=== PATIENT | female | born 1955 | race Caucasian/White ===

== ENCOUNTER → 2016-10-15 | Outpatient (CLI) | payer OTHER, MEDICAID ==
[~2016-10-15] MED LIST: IOPAMIDOL (ISOVUE-300) 100 ML BTL IV ONE
== END ==
LOC: FIMAGING 13:17
PROVIDERS: ATTEND Physician Assistant
DX: R91.1 Solitary pulmonary nodule (principal); N20.0 Calculus of kidney; I25.10 Atherosclerotic heart disease of native coronary artery without angina pectoris
CPT/HCPCS: 74177; Q9967

== ENCOUNTER → 2016-10-24 | Outpatient (CLI) | payer OTHER, MEDICAID | LOC: FIMAGING 14:00 | DX: Z12.31 Encounter for screening mammogram for malignant neoplasm of breast (principal) | CPT/HCPCS: G0202 ==

== ENCOUNTER 2016-12-03 09:10 | Day surgery (SDC) | payer OTHER, MEDICAID ==
[2016-12-03] MEDS ORDERED: LIDOCAINE 1% 5 ML SDV ID PRN (10:22)
[2016-12-03] MEDS ORDERED: LR 1,000 ML IV ONE (10:22)
[2016-12-03] MEDS ORDERED: PROPOFOL/EMULSION 500 MG/50 ML BOTTLE IV ONE (11:22)
--- NOTE | 2016-12-03 12:10 | GPN ---
[f rep st] PROCEDURE NOTE DATE OF PROCEDURE: 12/03/2016 PREPROCEDURE DIAGNOSIS: Diarrhea, rectal bleeding and cramping abdominal pain. POSTPROCEDURE DIAGNOSIS: Diarrhea, rectal bleeding and cramping abdominal pain. Normal colonoscopy . PROCEDURE: Colonoscopy with biopsies. MEDICATIONS: Monitored anesthesia care. INDICATIONS: The patient is a 61-year-old female with a history of crampy abdominal pain and change in bowel habits along with diarrhea and hematochezia. She is here for a colonoscopy for further ev aluation. The risks and benefits of the procedure were discussed with the patient. Consent was obt ained. Risks include, but not limited to, bleeding, perforation, sedation. The patient is ASA clas s 2. PROCEDURE: The adult colonoscope was advanced into the terminal ileum which appeared normal. The a ppendiceal orifice, cecum, ascending colon, hepatic flexure, transverse colon, splenic flexure, desc ending colon, sigmoid colon and rectum appeared normal. Random biopsies were taken throughout the c olon using cold biopsy forceps to evaluate for microscopic colitis. Retroflexed views in the rectum were normal. IMPRESSION: 1. Normal colonoscopy including the terminal ilium. 2. Status post random biopsies for microscopic colitis. RECOMMENDATIONS: 1. Discharge home with escort. 2. Advance diet as tolerated. 3. Continue current medications. 4. Follow up final pathology results. Results available within 10 days. 5. Repeat colonoscopy in 10 years for screening purposes. Thank you for allowing me to participate in the care of hour patient. Please do not hesitate to jonas antonia with questions. /[id number]/MODL
== END 2016-12-03 13:05 | disposition home or self-care (01) ==
LOC: FSGY 09:10
PROVIDERS: ATTEND Internal Medicine Gastroenterology
PROC: 0DBE8ZX Excision of Large Intestine, Via Natural or Artificial Opening Endoscopic, Diagnostic (ICD-10-PCS; principal; 2016-12-03 11:00)
DX: K92.1 Melena (principal); R19.7 Diarrhea, unspecified; R10.84 Generalized abdominal pain
CPT/HCPCS: J2704

== ENCOUNTER → 2017-03-17 | Outpatient (CLI) | payer OTHER, MEDICAID | LOC: FIMAGING 16:09 | PROVIDERS: ATTEND Nurse Practitioner Family | DX: M17.12 Unilateral primary osteoarthritis, left knee (principal) ==

== ENCOUNTER 2017-03-22 23:03 | Emergency (ER) | payer OTHER, MEDICAID ==
[2017-03-22] MEDS ORDERED: HYDROCODONE/APAP 10/325 TAB PO ONE (23:06)
--- NOTE | 2017-03-22 23:10 | EDPHY ---
H & P HPI/ROS: HPI CHIEF COMPLAINT: Left knee pain. HISTORY OF PRESENT ILLNESS: This patient very pleasant 61-year-old female, resides at [facility], significant past medical history for hypertension, hyperlipidemia, knee arthritis, obesity, Asperger syndrome, she presents emergency room with left knee pain x2 weeks progressively getting worse. She is able to bear weight. She has been taking [place] for but it continues to have pain. She denies thigh pain, calf pain. Denies leg swelling. Denies direct trauma. She states intermittently her left knee acts up in gives her pain. Past Medical History: Hypertension, hyperlipidemia, obesity, knee arthritis, Asperger syndrome Past Surgical History: No recent surgery Social History: Resides at [facility], denies illicit drugs alcohol tobacco products. Family History: Noncontributory ROS REVIEW OF SYSTEMS: A comprehensive 10 point review of systems is otherwise negative aside from elements mentioned in the history of present illness. Exam Constitutional appears well nontoxic, triage nursing summary reviewed, vital signs reviewed, awake/alert. Eyes normal conjunctivae and sclera, EOMI, PERRLA. HENT normal inspection, atraumatic, moist mucus membranes, no epistaxis, neck supple/ no meningismus, no raccoon eyes. Respiratory clear to auscultation bilaterally, normal breath sounds, no respiratory distress, no wheezing. Cardiovascular rate normal, regular rhythm, no murmur, no edema, distal pulses normal. Gastrointestinal soft, non-tender, no rebound, no guarding, normal bowel sounds, no distension, no pulsatile mass. Genitourinary no CVA tenderness. Musculoskeletal left knee; full range of motion, no clicking, no significant swelling, no warmth, no erythema, no evidence of joint effusion. Distally she is neurovascular intact good cap refill, good distal pulse, warm extremity, full range of motion. no midline vertebral tenderness, full range of motion, no calf swelling, no tenderness of extremities, no meningismus, good pulses, neurovascularly intact. Skin pink, warm, & dry, no rash, skin atraumatic. Neurologic awake, alert and oriented x 3, AAOx3, moves all 4 extremities equally, motor intact, sensory intact, CN II-XII intact, normal cerebellar, normal vision, normal speech. Psychiatric normal mood/affect. Heme/Lymph/Immune no lymphadenopathy. Differential Diagnosis: Includes but is not limited to in a particular order, knee arthritis, osteoarthritis, doubt septic joint, arthralgia Medical Decision Making: Plan for this patient x-ray left knee. [place] for pain control. Re-evaluation: X-ray reviewed left knee. Shows osteoarthritis. No significant fracture. No significant effusion. Patient placed in knee immobilizer, ice, anti- inflammatory pain medicine. Orthopedic follow-up. She understands. Source: Patient, EMS - Medical/Surgical History Hx Asthma: No Hx Chronic Respiratory Disease: No Hx Diabetes: Yes Hx Cardiac Disease: No Hx Renal Disease: No Hx Cirrhosis: No Hx Alcoholism: No Hx HIV/AIDS: No Hx Splenectomy or Spleen Trauma: No Other PMH: HTN, schizoaffective, hysterectomy, hypothyroidism, DMII, aspberger' s syndrome, high cholesterol - Social History Smoking Status: Former smoker Constitutional: Initial Vital Signs Temperature (C) 36.7 C 03/22/17 23:10 Heart Rate 79 03/22/17 23:10 Respiratory Rate 20 03/22/17 23:10 Blood Pressure 140/74 H 03/22/17 23:10 O2 Sat (%) 94 03/22/17 23:10 O2 Delivery Mode Room Air Allergies/Adverse Reactions: carrot [Carrot] Allergy (Verified 11/12/16 11:01) Cat/Feline Produc *RETIRED-04/13/12 [Cat/Feline Product Derivatives] Allergy ( Verified 11/12/16 11:01) ASPRIN Allergy (Uncoded 11/12/16 11:01) Vomiting squash Allergy (Uncoded 06/07/13 10:37) ZUCCHINI Allergy (Uncoded 07/12/13 18:35) Home Medications: Medication Instructions Recorded Abilify 06/08/14 Atorvastatin Calcium 06/08/14 Famotidine 06/08/14 Levothyroxine 06/08/14 MIRTAZAPINE 06/08/14 Omeprazole 06/08/14 traZODONE 06/08/14 Losartan/Hctz 50/12.5 11/12/16 Departure - Departure Disposition: Home, Routine, Self-Care Clinical Impression: Arthralgia of knee Qualifiers: Laterality: left Qualified Code(s): M25.562 - Pain in left knee Condition: Good Instructions: Knee Pain (ED), Arthralgia (ED) Additional Instructions: 1. Ice your knee. 2. Take pain medicine for knee pain. Ibuprofen for mild pain [place] for severe pain 3. Follow up with Orthopedics. Referrals: Clare Rob MD [Primary Care Provider] - As per Instructions Tai Lazaro MD [Medical Doctor] - As per Instructions
[2017-03-22 23:48] VITALS: BP 120/78; PULSE 82; RESP 18; TEMP 97.7; O2SAT 93
== END 2017-03-23 | disposition home or self-care (01) ==
LOC: EDUNIT#
DX: M25.562 Pain in left knee (principal); I10 Essential (primary) hypertension; E11.9 Type 2 diabetes mellitus without complications; Z87.891 Personal history of nicotine dependence

== ENCOUNTER 2017-08-14 22:28 | Emergency (ER) | payer OTHER, MEDICAID ==
[2017-08-14] MEDS ORDERED: NS 1,000 ML IV ONE (22:48)
[2017-08-14] MEDS ORDERED: INSULIN REGULAR HUMAN 100 UNIT/ML UNIT IVP ONE (22:49)
--- NOTE | 2017-08-14 22:53 | EDPHY ---
H & P Stated Complaint: high blood glucose of 515- sent by MD Time Seen by Provider: 08/14/17 22:39 HPI/ROS: HPI The patient presents with elevated blood glucose found at the primary care doctor's office today. The patient has a history of type 2 diabetes and was previously on metformin, however due to episodes of hypoglycemia she was taken off several months or years ago she believes. She has not been checking her blood glucose since then. She does have symptoms of polyuria, polydipsia, polyphagia for the last several weeks. Because of this she had routine testing today at her doctor's office which demonstrated a blood glucose of 515. She denies any nausea, vomiting, abdominal pain, confusion. At home, she does have a glucometer and supplies. She was recently treated for a yeast infection. REVIEW OF SYSTEMS Constitutional: No fever, no chills. Eyes: No discharge. ENT: No sore throat. Cardiovascular: No chest pain, no palpitations. Respiratory: No cough, no shortness of breath. Gastrointestinal: No abdominal pain, no vomiting. Genitourinary: No hematuria. Musculoskeletal: No back pain. Skin: No rashes. Neurological: No headache. PMHx: Type 2 diabetes, off of metformin for several months or years, hypertension, schizoaffective disorder, Asperger's disorder Soc Hx: Lives independently, administers her own medications PHYSICAL General Appearance: Alert, no distress Eyes: Pupils equal and round no pallor or injection ENT, Mouth: Mucous membranes moist Respiratory: There are no retractions, lungs are clear to auscultation Cardiovascular: Regular rate and rhythm Gastrointestinal: Abdomen is soft and non-tender, no masses, bowel sounds normal Neurological: A&O, moves all extremities Skin: Warm and dry, no rashes Musculoskeletal: Neck is supple non tender Extremities: symmetrical, full range of motion Psychiatric: Patient is oriented X 3, there is no agitation Source: Patient Exam Limitations: No limitations - Personal History Current Tetanus/Diphtheria Vaccine: Unsure Current Tetanus Diphtheria and Acellular Pertussis (TDAP): Unsure - Medical/Surgical History Hx Asthma: No Hx Chronic Respiratory Disease: No Hx Diabetes: Yes Hx Cardiac Disease: No Hx Renal Disease: No Hx Cirrhosis: No Hx Alcoholism: No Hx HIV/AIDS: No Hx Splenectomy or Spleen Trauma: No Other PMH: HTN, schizoaffective, hysterectomy, hypothyroidism, DMII, aspberger' s syndrome, high cholesterol - Social History Smoking Status: Former smoker Constitutional: Initial Vital Signs Temperature (C) 36.5 C 08/14/17 22:29 Heart Rate 88 08/14/17 22:29 Respiratory Rate 20 08/14/17 22:29 Blood Pressure 145/88 H 08/14/17 22:29 O2 Sat (%) 92 08/14/17 22:29 O2 Delivery Mode Room Air Allergies/Adverse Reactions: carrot [Carrot] Allergy (Verified 11/12/16 11:01) Cat/Feline Produc *RETIRED-04/13/12 [Cat/Feline Product Derivatives] Allergy ( Verified 11/12/16 11:01) ASPRIN Allergy (Uncoded 11/12/16 11:01) Vomiting squash Allergy (Uncoded 06/07/13 10:37) ZUCCHINI Allergy (Uncoded 07/12/13 18:35) Home Medications: Medication Instructions Recorded Abilify 06/08/14 Atorvastatin Calcium 06/08/14 Famotidine 06/08/14 Levothyroxine 06/08/14 MIRTAZAPINE 06/08/14 Omeprazole 06/08/14 traZODONE 06/08/14 Losartan/Hctz 50/12.5 11/12/16 metFORMIN HCL [Metformin HCl] 500 mg PO BID #30 tablet 08/14/17 Medical Decision Making Differential Diagnosis: This is a 62-year-old female with history of type 2 diabetes, previously on metformin, taken off for episodes of hypo glycemia, now with several weeks of polyuria, polydipsia, polyphagia. Blood glucose checked at primary care doctor' s office today was 515. Differential diagnosis includes type 2 by diabetes with hyperglycemia, hyper asthma attack hyper ketotic state, DKA. Plan for basic labs, IV fluids and insulin. Will re-initiate her metformin at 500 mg. Will have her follow up with her primary care doctor in a few days. She does have a glucometer at home which she can start using again in the next 1 day. She is in agreement with this plan. Glucose rechecked and was 190. She felt comfortable going home and will be discharged. - Data Points Laboratory Results: Laboratory Results 08/14/17 22:40 08/14/17 22:40 Sodium 135 mEq/L mEq/L (135-145) Potassium 4.2 mEq/L mEq/L (3.5-5.2) Chloride 94 mEq/L L mEq/L (97-110) Carbon Dioxide 26 mEq/l mEq/l (22-31) Anion Gap 15 mEq/L mEq/L (8-16) BUN 20 mg/dL mg/dL (7-23) Creatinine 0.8 mg/dL mg/dL (0.6-1.0) Estimated GFR > 60 Glucose 372 mg/dL H mg/dL (70-100) Calcium 9.8 mg/dL mg/dL (8.5-10.4) Medications Given: Discontinued Medications Sodium Chloride (Ns) 1,000 mls @ 0 mls/hr IV EDNOW ONE; Wide Open PRN Reason: Protocol Stop: 08/14/17 22:49 Last Admin: 08/14/17 22:51 Dose: 1,000 mls Insulin Human Regular (Humulin R) 10 unit IVP EDNOW ONE Stop: 08/14/17 22:50 Last Admin: 08/14/17 22:56 Dose: 10 units Departure - Departure Disposition: Home, Routine, Self-Care Clinical Impression: Hyperglycemia due to type 2 diabetes mellitus Qualifiers: Diabetes mellitus termite helper insulin use: without termite helper use Qualified Code(s ): E11.65 - Type 2 diabetes mellitus with hyperglycemia Condition: Good Instructions: How to Check Your Blood Sugar (ED), Type 2 Diabetes in Adults (ED ) Additional Instructions: Please return to the emergency department if your worse in any way. Otherwise, please follow-up with your regular doctor tomorrow or the next day. You should start taking the metformin again and check your blood sugars daily. Referrals: Clare Rob MD [Primary Care Provider] - As per Instructions Brandin Moore MD [Medical Doctor] - As per Instructions Prescriptions: metFORMIN HCL [Metformin HCl] 500 mg PO BID #30 tablet
[2017-08-15 00:35] VITALS: BP 125/72; PULSE 76; RESP 16; TEMP 97.5; O2SAT 93
== END 2017-08-15 00:33 | disposition home or self-care (01) ==
DX: E11.65 Type 2 diabetes mellitus with hyperglycemia (principal); E86.9 Volume depletion, unspecified; I10 Essential (primary) hypertension; Z79.84 Long term (current) use of oral hypoglycemic drugs; Z87.891 Personal history of nicotine dependence
CPT/HCPCS: 96361; 96374; 99284; J1815

== ENCOUNTER → 2017-10-27 | Outpatient (CLI) | payer OTHER, MEDICAID | LOC: FIMAGING 13:22 | PROVIDERS: ATTEND Family Medicine | DX: Z12.31 Encounter for screening mammogram for malignant neoplasm of breast (principal) ==

== ENCOUNTER → 2018-10-28 | Outpatient (CLI) | payer OTHER, MEDICAID | LOC: FIMAGING 12:25 | PROVIDERS: ATTEND Family Medicine | DX: Z12.31 Encounter for screening mammogram for malignant neoplasm of breast (principal) ==

== ENCOUNTER 2018-12-26 15:02 | Emergency (ER) | payer OTHER, MEDICAID ==
[2018-12-26] MEDS ORDERED: IPRATROPIUM/ALBUTEROL 3 ML DEYVIAL IH ONE (16:14)
--- NOTE | 2018-12-26 18:03 | EDPHY ---
H & P Stated Complaint: cough, thick green and brown mucus Time Seen by Provider: 12/26/18 15:44 HPI/ROS: CHIEF COMPLAINT: Productive cough HISTORY OF PRESENT ILLNESS: This is a 63 year old female with one day of productive cough. She described brown/green thick sputum. The cough has almost resulted in tussive emesis, but not quite. No fever. She feels slightly short of breath. She had a sore throat two nights ago that persists, mild in nature. No chest pain. Influenza vaccination this year. REVIEW OF SYSTEMS: A ten system review of systems was performed and is negative with the exception of the items mentioned in the HPI. Past medical history: 1. HTN 2. Schizoaffective disorder 3. Hypothyroidism 4. DM II 5. Asperger's syndrome 6. HLD Past surgical history: Hysterectomy Social history: Lives alone. No tobacco or alcohol use. General Appearance: Alert. Vital signs reviewed. HR 101, BP 135/86. Afebrile. Eyes: Pupils equal and round, no conjunctival injection, no discharge. Anicteric. ENT, Mouth: Mucous membranes are moist, no oropharyngeal erythema or edema. Neck: No lymphadenopathy, supple. No meningeal signs. Respiratory: Lungs sounds are distant; no wheezes, rales, or rhonchi. Cardiovascular: Mild tachycardia; no murmur, rub, or gallop. Gastrointestinal: Abdomen is soft and nontender, no masses or organomegaly, bowel sounds normal. Skin: Warm and dry, no rashes on exposed skin, normal color. Back: Nontender to palpation over the thoracolumbar spine. No CVAT. Extremities: No lower extremity edema, no calf tenderness or swelling. Neurological: Alert and oriented. Moving all four extremities easily and equally. Psychiatric: Normal affect. - Personal History Current Tetanus/Diphtheria Vaccine: Unsure Current Tetanus Diphtheria and Acellular Pertussis (TDAP): Unsure - Medical/Surgical History Hx Asthma: No Hx Chronic Respiratory Disease: No Hx Diabetes: Yes Hx Cardiac Disease: No Hx Renal Disease: No Hx Cirrhosis: No Hx Alcoholism: No Hx HIV/AIDS: No Hx Splenectomy or Spleen Trauma: No Other PMH: HTN, schizoaffective, hysterectomy, hypothyroidism, DMII, aspberger' s syndrome, high cholesterol - Social History Smoking Status: Former smoker Constitutional: Initial Vital Signs Temperature (C) 37.1 C 12/26/18 15:05 Heart Rate 101 H 12/26/18 15:05 Respiratory Rate 14 12/26/18 15:05 Blood Pressure 135/86 H 12/26/18 15:05 O2 Sat (%) 90 L 12/26/18 15:05 O2 Delivery Mode Room Air Allergies/Adverse Reactions: carrot [Carrot] Allergy (Verified 11/12/16 11:01) Cat/Feline Produc *RETIRED-04/13/12 [Cat/Feline Product Derivatives] Allergy ( Verified 11/12/16 11:01) ASPRIN Allergy (Uncoded 11/12/16 11:01) Vomiting squash Allergy (Uncoded 06/07/13 10:37) ZUCCHINI Allergy (Uncoded 07/12/13 18:35) Home Medications: Medication Instructions Recorded Abilify 06/08/14 Atorvastatin Calcium 06/08/14 Famotidine 06/08/14 Levothyroxine 06/08/14 MIRTAZAPINE 06/08/14 Omeprazole 06/08/14 traZODONE 06/08/14 Losartan/Hctz 50/12.5 11/12/16 metFORMIN HCL [Metformin HCl] 500 mg PO BID #30 tablet 08/14/17 Albuterol [Proventil Inhaler HFA 1 - 2 puffs IH Q4 #1 mdi 12/26/18 (*)] Azithromycin 500 mg PO DAILY #3 tablet 12/26/18 Medical Decision Making ED Course/Re-evaluation: Duoneb given. Re-exam after Duoneb reveals more audible lung sounds. No wheezes. She feels better after duoneb. She is not hypoxic in ED. CXR with evidence of bronchitis. No pneumonia/infiltrate, no pneumothorax, no effusion. I do not suspect cardiac disease in this setting. She is not toxic appearing, does not meet sepsis screening criteria. I do not think that this is influenza. Nothing to support diagnosis of strep pharyngitis. I am diagnosing bronchitis, RX for alb MDI, azithromycin. - Data Points Medications Given: Discontinued Medications Albuterol/Ipratropium (Duoneb) 3 ml IH EDNOW ONE Stop: 12/26/18 16:15 Last Admin: 12/26/18 16:32 Dose: 3 ml Departure - Departure Disposition: Home, Routine, Self-Care Clinical Impression: Acute bronchitis Qualifiers: Bronchitis organism: other organism Qualified Code(s): J20.8 - Acute bronchitis due to other specified organisms Condition: Good Instructions: Acute Bronchitis (ED) Additional Instructions: Use the inhaler 4 times daily, 2 puffs at a time. Take the antibiotics as prescribed. The antibiotic is call azithromycin. You take one pill daily for three days Drink lots of fluids and get lots of rest. Follow up with Dr. Rob in the next week or so. Referrals: Clare Rob MD [Primary Care Provider] - As per Instructions Prescriptions: Albuterol [Proventil Inhaler HFA (*)] 1 - 2 puffs IH Q4 #1 mdi Azithromycin 500 mg PO DAILY #3 tablet
[2018-12-26 18:13] VITALS: BP 136/85
== END 2018-12-26 18:11 | disposition home or self-care (01) ==
DX: J20.8 Acute bronchitis due to other specified organisms (principal); I10 Essential (primary) hypertension; E11.9 Type 2 diabetes mellitus without complications; Z79.4 Long term (current) use of insulin